=== PATIENT | female | born 1980 | race African-American/Black ===

== ENCOUNTER 2020-09-13 04:19 | Day surgery (SDC) | payer OTHER ==
[2020-09-12 08:00] VITALS: BMI 29.7
[2020-09-13 11:08] LABS: HEMATOCRIT 35.7 % (32.4-45.2); HEMOGLOBIN 12.1 GM/dL (10.7-15.3); MCH 30.1 pg (25.7-33.7); MCHC 33.8 g/dl (32.0-36.0); MEAN PLT VOLUME 7.9 fl (7.5-11.1); PLATELET COUNT 270 10^3/uL (134-434); RBC 4.01 M/mm3 (3.60-5.2); RDW 12.1 % (11.6-15.6)
[2020-09-13 11:23] LABS: CALCIUM 9.3 mg/dL (8.5-10.1)
[2020-09-13 11:24] LABS: ALBUMIN 3.7 g/dl (3.4-5.0); BLOOD UREA NITROGEN 10.3 mg/dL (7-18)
[2020-09-13 11:27] LABS: CREATININE 0.8 mg/dL (0.55-1.3)
[2020-09-13 11:28] LABS: BILIRUBIN,TOTAL 0.5 mg/dL (0.2-1); TOT PROT 8.1 g/dl (6.4-8.2)
[2020-09-13 11:32] LABS: INR 1.15 (0.83-1.09); PROTHROMBIN TIME (PATIENT) 13.9 SEC (9.7-13.0)
[2020-09-13] MEDS ORDERED: ISOSULFAN BLUE 50 MG/5 ML VIAL SQ ONE (11:41)
[2020-09-13] MEDS ORDERED: TRIAMCINOLONE ACET 40MG/1ML VIAL ONE (12:04)
[2020-09-13] MEDS ORDERED: PROPOFOL 20 ML ONE (12:09)
[2020-09-13] MEDS ORDERED: fentaNYL CITRATE 250 MCG/5 ML VIAL ONE (12:09)
[2020-09-13] MEDS ORDERED: ROCURONIUM BROMIDE 50 MG/5 ML SYRINGE ONE (12:10)
[2020-09-13] MEDS ORDERED: MIDAZOLAM HCL 2 MG/2 ML SINGLE DOSE VIAL ONE ×2 (12:10→13:35)
[2020-09-13] MEDS ORDERED: ceFAZolin SODIUM 1 GM VIAL ONE ×2 (12:30)
[2020-09-13] MEDS ORDERED: DEXAMETHASONE SOD PHOSPHATE 4 MG/1 ML VIAL ONE (12:30)
[2020-09-13] MEDS ORDERED: KETOROLAC TROMETHAMINE 30 MG/1 ML VIAL ONE (12:30)
[2020-09-13] MEDS ORDERED: ONDANSETRON 4 MG/2 ML VIAL ONE ×2 (12:30→16:48)
[2020-09-13] MEDS ORDERED: ceFAZolin SODIUM 1 GM VIAL IVPB ONE (12:30)
[2020-09-13] MEDS ORDERED: TRIAMCINOLONE ACET 40MG/1ML VIAL IJ ONE (13:15)
[2020-09-13] MEDS ORDERED: GLYCOPYRROLATE 0.2 MG/1 ML VIAL ONE (13:17)
[2020-09-13] MEDS ORDERED: oxyCODONE HCL 5 MG TABLET PO PRN ×2 (13:24)
[2020-09-13] MEDS ORDERED: ONDANSETRON 4 MG/2 ML VIAL IVPUSH PRN (13:24)
[2020-09-13] MEDS ORDERED: LACTATED RINGERS SOLUTION 1,000 ML IV SCH (13:30)
[2020-09-13] MEDS ORDERED: ACETAMINOPHEN INJECTION 100 ML IVPB ONE (16:12)
[2020-09-13] MEDS ORDERED: ACETAMINOPHEN 1000 MG/100 ML VIAL (NON FORMULARY) IVPB ONE (16:14)
[2020-09-13 18:24] VITALS: BP 125/76; PULSE 70; TEMP 97.8
== END 2020-09-13 18:13 | disposition home or self-care (01) ==
LOC: JASU-SURG 04:19
PROVIDERS: ATTEND Specialist
PROC: 3E1P38X Irrigation of Female Reproductive using Irrigating Substance, Percutaneous Approach, Diagnostic (ICD-10-PCS; 2020-09-13)
PROC: 0WJG4ZZ Inspection of Peritoneal Cavity, Percutaneous Endoscopic Approach (ICD-10-PCS; principal; 2020-09-13 12:00)
PROC: 0UB97ZX Excision of Uterus, Via Natural or Artificial Opening, Diagnostic (ICD-10-PCS; 2020-09-13 12:00)
PROC: 0UJD8ZZ Inspection of Uterus and Cervix, Via Natural or Artificial Opening Endoscopic (ICD-10-PCS; 2020-09-13 12:00)
DX: N92.0 Excessive and frequent menstruation with regular cycle (principal); N97.9 Female infertility, unspecified; L91.0 Hypertrophic scar; N84.0 Polyp of corpus uteri; N73.6 Female pelvic peritoneal adhesions (postinfective); N97.1 Female infertility of tubal origin
CPT/HCPCS: 36415; 80053; 84703; 85027; 85610; 86900; 86922; 88304-TC; 88305-TC; 94760; J0131

== ENCOUNTER → 2021-10-11 | Day surgery (SDC) | payer OTHER | END | disposition home or self-care (01) | LOC: JLAB 10:35 | PROVIDERS: ATTEND Specialist | PROC: BU18YZZ Fluoroscopy of Uterus and Fallopian Tubes using Other Contrast (ICD-10-PCS; principal; 2021-10-11) | DX: N97.8 Female infertility of other origin (principal) | CPT/HCPCS: 58340; 74740-TC-FY; 76000-TC-FY; 84703 ==

== ENCOUNTER → 2021-12-13 | Day surgery (SDC) | payer OTHER | END | disposition home or self-care (01) | LOC: FMAMMOTONE 09:31 | PROVIDERS: ATTEND Specialist | PROC: 0HBU3ZX Excision of Left Breast, Percutaneous Approach, Diagnostic (ICD-10-PCS; principal; 2021-12-13) | DX: D24.2 Benign neoplasm of left breast (principal); N64.89 Other specified disorders of breast; N60.32 Fibrosclerosis of left breast; R92.1 Mammographic calcification found on diagnostic imaging of breast | CPT/HCPCS: 19081; 19082; 76098-TC-FY; 87899; 88305-TC; A4648 ==